=== PATIENT | male | born 1970 | race Caucasian/White ===

== ENCOUNTER 2021-10-10 01:57 | Emergency (ER) | payer SELFPAY ==
[2021-10-10 02:37] VITALS: BP 169/88; PULSE 71; RESP 16; TEMP 98.2; BMI 39.8
[2021-10-10] MEDS ORDERED: MECLIZINE HCL 25 MG TABLET (FP) PO ONE (03:28)
[2021-10-10] MEDS ORDERED: MECLIZINE HCL 25 MG TABLET (FP) ONE (03:35)
== END 2021-10-10 05:23 | disposition home or self-care (01) ==
LOC: JER 01:57
DX: R42 Dizziness and giddiness (principal)
CPT/HCPCS: 70450-TC; 82962; 93005; 93010; 99284-25